=== PATIENT | female | born 1960 | race Caucasian/White ===

== ENCOUNTER 2018-08-05 05:27 | Observation (INO) ==
[2018-08-05] MEDS ORDERED: GI Cocktail 40 ML EACH PO ONE (05:37)
[2018-08-05] MEDS ORDERED: Sucralfate 1 GM TABLET PO STA (05:37)
--- NOTE | 2018-08-05 06:09 | Emergency Department Note ---
Disposition Clinical Impression: Epigastric pain Disposition: Still a Patient Referrals: NONE,PCP [Primary Care Provider] - Forms: ED Satisfaction Letter, Work/School Release Abdominal Pain HPI - General Chief Complaint: ED Abdominal Pain Stated Complaint: abd pain Time Seen by Provider: 08/05/18 05:37 Source: patient Mode of arrival: ambulatory Limitations: no limitations Nursing Notes Reviewed: Yes Vital Signs Reviewed: Yes - History of Present Illness HPI Narrative: 58-year-old female presents to the emergency department via EMS for epigastric abdominal pain. Said it woke her up from sleep at 7 PM and has continued to have pain. She describes the pain as 8 out of 10 coming going epigastrium radiating up into her chest. She says she does have history of GERD was given a stomach pill but only takes it as needed. She also said that she took Pepto- Bismol before coming into that did not help with the pain either. Patient has not noted any fevers or chills. She has no shortness of breath. She is smoker does have history of COPD. She has not noticed any blood in her stools or melanic stools. She feels like she needs to vomit but has not vomited. She has a mildly nauseous at this time but has been getting better. The pain is not is just rating it up into the chest and think seems to make it better or worse. Patient otherwise has no other complaints. Pain Scale: 10 - Related Data Home Medications Medication Instructions Recorded Confirmed Aspirin 81 mg PO DAILY 12/14/15 12/14/15 Guaifenesin [Mucinex] 600 mg PO BID 12/14/15 12/14/15 Metoprolol [Lopressor] 25 mg PO DAILY 12/14/15 12/14/15 Allergies Allergy/AdvReac Type Severity Reaction Status Date / Time No Known Allergies Allergy Verified 12/14/15 07:33 All systems ED: reviewed and negative except as stated. Review of Systems: As Per HPI Abdominal Pain PMH - Past Medical History Medical history: Reports: hypertension Female Surgical History: Reports: Psychiatric history: Reports: no psych history - Social History Smoking status: Current every day smoker Alcohol use: Reports: occasionally Drug use: Reports: none Physical Exam - General Limitations: no limitations General appearance: alert, in no apparent distress - Head Head exam: atraumatic, normocephalic, normal inspection - Eye Eye exam: Present: normal appearance, PERRL, EOMI - ENT ENT exam: normal exam, normal oropharynx, mucous membranes moist - Neck Neck exam: Present: normal inspection, full ROM, trachea midline - Chest Chest inspection: Present: normal inspection, symmetric chest wall rise - Respiratory Respiratory exam: Present: normal lung sounds bilaterally - Cardiovascular Cardiovascular exam: Present: regular rate, normal rhythm, normal heart sounds - Abdominal Exam Abdominal exam: Present: soft, tenderness, normal bowel sounds. Absent: diste ntion, guarding, rebound, rigidity Abdominal tenderness: Present: epigastrium, mild - Extremities Exam Extremities exam: Present: normal inspection, full ROM. Absent: tenderness, pedal edema - Back Exam Back exam: Present: normal inspection, full ROM. Absent: tenderness - Neurological Exam Neurological exam: Present: alert, oriented X3 - Skin Skin exam: Present: warm, dry, intact, normal color Course Course Narrative: 4-year-old female presented emergency department with abdominal pain. We will get basic labs getting CBC, BMP as well as a lactate and lipase. We will give patient Carafate and GI cocktail for pain control. We will hold off on getting advanced imaging at this time until labs return. Disposition is pending results. - Reevaluation(s) Reevaluation #1: Patient reevaluated sliding same epigastric abdominal pain. We will do CT abdomen and pelvis with contrast. We will give patient Pepcid, fentanyl, IV fluids for pain control. Patient is still not nauseous at this time. Time: 06:41 Vital Signs Temperature 97.7 F 08/05/18 05:29 Pulse Rate 74 08/05/18 05:29 Respiratory Rate 20 08/05/18 05:29 Blood Pressure 154/74 08/05/18 05:29 O2 Sat by Pulse Oximetry 96 08/05/18 05:29 Temperature 97.7 F 08/05/18 05:29 Pulse Rate 65 08/05/18 06:49 Respiratory Rate 20 08/05/18 06:49 Blood Pressure 180/85 08/05/18 06:49 O2 Sat by Pulse Oximetry 97 08/05/18 06:49 Oxygen Delivery Oxygen Delivery Room Air Abdominal Pain - MDM Narrative Medical decision making narrative: 4-year-old female presents to the emergency department complaining of epigastric abdominal pain. When first evaluated her is minimal epigastric this seems more like GERD. Did give patient Carafate and GI cocktail she said that did not help at all with her pain. Labs are still pending she did have mild leukocytosis. Due to this we decided to add a CT abdomen and pelvis with contrast for further evaluation of patient's abdominal pain. I said he an IV give her IV fluids, fentanyl and Pepcid. Patient's okay with this plan. Patient's labs and CT imaging are still pending at this time. Patient will be signed out to the day team physicians please refer to Dr. Armas and See's note for further plan and disposition. Patient stable at time of sign out - Medical Records Medical records reviewed: Yes I reviewed the patient's medical records. - Lab Data Lab results reviewed: Yes I reviewed the patient's lab results. Result diagrams: 08/05/18 06:13 Lab Results 08/05/18 08/05/18 08/05/18 Range/Units 06:08 06:13 06:13 WBC 13.1 H (4.3-11.1) K/mcL RBC 5.02 H (3.82-4.97) M/mcL Hgb 16.0 H (11.5-15.4) g/dL Hct 47.2 H (35.3-44.9) % MCV 94.0 (83.0-100.0) fL MCH 31.9 (28.0-33.3) pg MCHC 33.9 (31.6-35.5) g/dL RDW 12.0 (11.5-14.5) % Plt Count 200 (140-400) K/mcL MPV 11.3 (9.4-12.4) fL Immature Gran % 0.4 (0-4) % Seg Neutrophils % 84.1 % Lymphocytes % 8.9 % Monocytes % 5.4 % Eosinophils % 1.0 % Basophils % 0.2 % Neutrophils # 11.0 H (1.6-8.9) K/mcL Lymphocytes # 1.2 (0.6-4.6) K/mcL Monocytes # 0.7 (0.0-1.3) K/mcL Eosinophils # 0.1 (0.0-0.6) K/mcL Basophils # 0.0 (0.0-0.2) K/mcL PT (9.4-12.1) Seconds INR APTT (26.0-36.0) Seconds Lactic Acid (0.5-2.2) mmol/L Troponin I < 0.03 (< 0.04) ng/mL Urine Color Yellow (Yellow) Urine Clarity Clear (Clear) Urine pH 5.5 (5.0-8.0) pH Units Ur Specific [place] 1.019 (1.010-1.025) Urine Protein Negative (Neg-Trace) mg/dL Urine Glucose (UA) Normal (Normal) mg/dL Urine Ketones Negative (Negative) mg/dL Urine Blood Trace H (Negative) Urine Nitrite Negative (Negative) Urine Bilirubin Negative (Negative) Urine Urobilinogen Normal (Normal) mg/dL Ur Leukocyte Esterase Negative (Negative) Urine Microscopic RBC 0-3 (0-3) per hpf Urine Microscopic WBC 3-5 H (0-3) per hpf Ur Squamous Epith Cells Many H (None-Few) per lpf Urine Bacteria Few (None-Few) per hpf Hyaline Casts None Seen (None-Few) per lpf Ur Culture Indicated? NO (NO) 08/05/18 08/05/18 Range/Units 06:13 06:13 WBC (4.3-11.1) K/mcL RBC (3.82-4.97) M/mcL Hgb (11.5-15.4) g/dL Hct (35.3-44.9) % MCV (83.0-100.0) fL MCH (28.0-33.3) pg MCHC (31.6-35.5) g/dL RDW (11.5-14.5) % Plt Count (140-400) K/mcL MPV (9.4-12.4) fL Immature Gran % (0-4) % Seg Neutrophils % % Lymphocytes % % Monocytes % % Eosinophils % % Basophils % % Neutrophils # (1.6-8.9) K/mcL Lymphocytes # (0.6-4.6) K/mcL Monocytes # (0.0-1.3) K/mcL Eosinophils # (0.0-0.6) K/mcL Basophils # (0.0-0.2) K/mcL PT 11.3 (9.4-12.1) Seconds INR 1.0 APTT 30.8 (26.0-36.0) Seconds Lactic Acid 1.3 (0.5-2.2) mmol/L Troponin I (< 0.04) ng/mL Urine Color (Yellow) Urine Clarity (Clear) Urine pH (5.0-8.0) pH Units Ur Specific [place] (1.010-1.025) Urine Protein (Neg-Trace) mg/dL Urine Glucose (UA) (Normal) mg/dL Urine Ketones (Negative) mg/dL Urine Blood (Negative) Urine Nitrite (Negative) Urine Bilirubin (Negative) Urine Urobilinogen (Normal) mg/dL Ur Leukocyte Esterase (Negative) Urine Microscopic RBC (0-3) per hpf Urine Microscopic WBC (0-3) per hpf Ur Squamous Epith Cells (None-Few) per lpf Urine Bacteria (None-Few) per hpf Hyaline Casts (None-Few) per lpf Ur Culture Indicated? (NO) - EKG Data EKG attestation: Yes I reviewed and interpreted this EKG. EKG results narrative: EKG done at 0 553 review myself and attending shows sinus rhythm at a rate of 69, IL 146, QRS 90, QTC 459. No acute ST changes no acute T-wave changes no other signs of ischemia. No signs of hypertrophy, heart, heart block. No WPW/Brugada/HOCM. EKG compared with old one done on 11/22/06 shows no acute changes
[2018-08-05 06:16] LABS: Bilirubin,Urine Negative (Negative); Blood,Urine Trace (Negative); Clarity,Urine Clear (Clear); Color,Urine Yellow (Yellow); Glucose,Urine (UA) Normal (Normal); Ketones,Urine Negative (Negative); Leukocyte Esterase,Urine Negative (Negative); Nitrite,Urine Negative (Negative); PH,Urine 5.5 pH Units (5.0-8.0); Protein,Urine Negative (Neg-Trace); Specific Gravity,Urine 1.019 (1.010-1.025); Urobilinogen,Urine Normal (Normal)
[2018-08-05 06:18] LABS: Bacteria,Urine Few per hpf (None-Few); Hyaline Casts,Urine None Seen per lpf (None-Few); RBC,Urine 0-3 per hpf (0-3); Squamous Epithelial Cell,Urine Many per lpf (None-Few)
[2018-08-05 06:24] LABS: Basophils % 0.2 %; Eosinophils # 0.1 K/mcL (0.0-0.6); Hematocrit 47.2 % (35.3-44.9); Immature Granulocytes % 0.4 % (0-4); Lymphocytes # 1.2 K/mcL (0.6-4.6); Lymphocytes % 8.9 %; Mean Corpuscular HGB Conc 33.9 g/dL (31.6-35.5); Mean Corpuscular Hemoglobin 31.9 pg (28.0-33.3); Mean Platelet Volume 11.3 fL (9.4-12.4); Monocytes # 0.7 K/mcL (0.0-1.3); Monocytes % 5.4 %; Platelet Count 200 K/mcL (140-400); Red Blood Count 5.02 M/mcL (3.82-4.97); Segmented Neutrophils % 84.1 %
[2018-08-05 06:33] LABS: Prothrombin Time 11.3 Seconds (9.4-12.1)
[2018-08-05 06:36] LABS: Activated Partial Thrombo Time 30.8 Seconds (26.0-36.0)
[2018-08-05] MEDS ORDERED: 0.9 % Sodium Chloride 1,000 ML IVC ONE ×2 (06:39→08:48)
[2018-08-05] MEDS ORDERED: *HR* FentaNYL (PF) 100 MCG/2 ML VIAL IVP ONE ×2 (06:39→12:18)
[2018-08-05] MEDS ORDERED: Isovue-370 500 ML BOTTLE IVP ONE (06:39)
[2018-08-05] MEDS ORDERED: Famotidine 20 MG/2 ML VIAL IVP ONE (06:40)
[2018-08-05] MEDS ORDERED: Ondansetron 4 MG/2 ML VIAL IVP ONE (06:44)
[2018-08-05 06:49] LABS: Troponin I < 0.03 ng/mL (< 0.04)
[2018-08-05 06:56] LABS: Alanine Aminotransferase 10 Units/L (7-52); Albumin 4.2 g/dL (3.5-5.7); Albumin/Globulin Ratio 1.6 (1.1-2.2); Alkaline Phosphatase 68 Units/L (34-104); Aspartate Amino Transferase 10 Units/L (13-39); BUN/Creatinine Ratio 24 (6-26); Bilirubin,Total 0.4 mg/dL (0.3-1.0); Blood Urea Nitrogen 16 mg/dL (8-23); Calcium 9.8 mg/dL (8.6-10.3); Carbon Dioxide 25 mEq/L (23-29); Chloride 104 mEq/L (98-107); Globulin 2.6 g/dL (2.4-3.5); Glucose 111 mg/dL (70-105); Lipase 16 Units/L (11-82); Osmolality,Calculated 288 (280-300); Sodium 138 mEq/L (136-145); Total Protein 6.8 g/dL (6.4-8.9); eGFR For Non-African Americans > 60 (> 60)
--- NOTE | 2018-08-05 06:56 | Emergency Department Note ---
Disposition Clinical Impression: Epigastric pain Disposition: Still a Patient Condition: Fair Referrals: NONE,PCP [Primary Care Provider] - Forms: ED Satisfaction Letter, Work/School Release General Adult HPI - General Chief complaint: ED Abdominal Pain Stated complaint: abd pain Time Seen by Provider: 08/05/18 05:37 Source: patient Mode of arrival: ambulatory Limitations: no limitations Nursing Notes Reviewed: Yes Vital Signs Reviewed: Yes - History of Present Illness Pain Scale: 10 - Related Data Home Medications Medication Instructions Recorded Confirmed Aspirin 81 mg PO DAILY 12/14/15 12/14/15 Guaifenesin [Mucinex] 600 mg PO BID 12/14/15 12/14/15 Metoprolol [Lopressor] 25 mg PO DAILY 12/14/15 12/14/15 Allergies Allergy/AdvReac Type Severity Reaction Status Date / Time No Known Allergies Allergy Verified 12/14/15 07:33 Past Medical History - Past Medical History Medical history: Reports: hypertension Surgical history: Reports: Psychiatric history: Reports: no psych history - Social History Smoking Status: Current every day smoker Smokeless Tobacco Status: No Alcohol use: Reports: occasionally Drug use: Reports: none Physical Exam - General Limitations: no limitations General appearance: alert, in no apparent distress Course Vital Signs Temperature 97.7 F 08/05/18 05:29 Pulse Rate 74 08/05/18 05:29 Respiratory Rate 20 08/05/18 05:29 Blood Pressure 154/74 08/05/18 05:29 O2 Sat by Pulse Oximetry 96 08/05/18 05:29 Temperature 97.7 F 08/05/18 05:29 Pulse Rate 65 08/05/18 06:49 Respiratory Rate 20 08/05/18 06:49 Blood Pressure 180/85 08/05/18 06:49 O2 Sat by Pulse Oximetry 97 08/05/18 06:49 Oxygen Delivery Oxygen Delivery Room Air Medical Decision Making - Lab Data Lab results reviewed: Yes I reviewed the patient's lab results. Result diagrams: 08/05/18 06:13 08/05/18 06:13 Lab Results 08/05/18 08/05/18 08/05/18 Range/Units 06:08 06:13 06:13 WBC 13.1 H (4.3-11.1) K/mcL RBC 5.02 H (3.82-4.97) M/mcL Hgb 16.0 H (11.5-15.4) g/dL Hct 47.2 H (35.3-44.9) % MCV 94.0 (83.0-100.0) fL MCH 31.9 (28.0-33.3) pg MCHC 33.9 (31.6-35.5) g/dL RDW 12.0 (11.5-14.5) % Plt Count 200 (140-400) K/mcL MPV 11.3 (9.4-12.4) fL Immature Gran % 0.4 (0-4) % Seg Neutrophils % 84.1 % Lymphocytes % 8.9 % Monocytes % 5.4 % Eosinophils % 1.0 % Basophils % 0.2 % Neutrophils # 11.0 H (1.6-8.9) K/mcL Lymphocytes # 1.2 (0.6-4.6) K/mcL Monocytes # 0.7 (0.0-1.3) K/mcL Eosinophils # 0.1 (0.0-0.6) K/mcL Basophils # 0.0 (0.0-0.2) K/mcL PT (9.4-12.1) Seconds INR APTT (26.0-36.0) Seconds Sodium 138 (136-145) mEq/L Potassium 4.0 (3.5-5.1) mEq/L Chloride 104 (98-107) mEq/L Carbon Dioxide 25 (23-29) mEq/L BUN 16 (8-23) mg/dL Creatinine 0.66 (0.60-1.20) mg/dL Est GFR ( Amer) > 60 (> 60) Est GFR (Non-Af Amer) > 60 (> 60) BUN/Creatinine Ratio 24 (6-26) Glucose 111 H (70-105) mg/dL Calculated Osmolality 288 (280-300) Lactic Acid (0.5-2.2) mmol/L Calcium 9.8 (8.6-10.3) mg/dL Total Bilirubin 0.4 (0.3-1.0) mg/dL AST 10 L (13-39) Units/L ALT 10 (7-52) Units/L Alkaline Phosphatase 68 (34-104) Units/L Troponin I < 0.03 (< 0.04) ng/mL Serum Total Protein 6.8 (6.4-8.9) g/dL Albumin 4.2 (3.5-5.7) g/dL Globulin 2.6 (2.4-3.5) g/dL Albumin/Globulin Ratio 1.6 (1.1-2.2) Lipase 16 (11-82) Units/L Urine Color Yellow (Yellow) Urine Clarity Clear (Clear) Urine pH 5.5 (5.0-8.0) pH Units Ur Specific [place] 1.019 (1.010-1.025) Urine Protein Negative (Neg-Trace) mg/dL Urine Glucose (UA) Normal (Normal) mg/dL Urine Ketones Negative (Negative) mg/dL Urine Blood Trace H (Negative) Urine Nitrite Negative (Negative) Urine Bilirubin Negative (Negative) Urine Urobilinogen Normal (Normal) mg/dL Ur Leukocyte Esterase Negative (Negative) Urine Microscopic RBC 0-3 (0-3) per hpf Urine Microscopic WBC 3-5 H (0-3) per hpf Ur Squamous Epith Cells Many H (None-Few) per lpf Urine Bacteria Few (None-Few) per hpf Hyaline Casts None Seen (None-Few) per lpf Ur Culture Indicated? NO (NO) 08/05/18 08/05/18 Range/Units 06:13 06:13 WBC (4.3-11.1) K/mcL RBC (3.82-4.97) M/mcL Hgb (11.5-15.4) g/dL Hct (35.3-44.9) % MCV (83.0-100.0) fL MCH (28.0-33.3) pg MCHC (31.6-35.5) g/dL RDW (11.5-14.5) % Plt Count (140-400) K/mcL MPV (9.4-12.4) fL Immature Gran % (0-4) % Seg Neutrophils % % Lymphocytes % % Monocytes % % Eosinophils % % Basophils % % Neutrophils # (1.6-8.9) K/mcL Lymphocytes # (0.6-4.6) K/mcL Monocytes # (0.0-1.3) K/mcL Eosinophils # (0.0-0.6) K/mcL Basophils # (0.0-0.2) K/mcL PT 11.3 (9.4-12.1) Seconds INR 1.0 APTT 30.8 (26.0-36.0) Seconds Sodium (136-145) mEq/L Potassium (3.5-5.1) mEq/L Chloride (98-107) mEq/L Carbon Dioxide (23-29) mEq/L BUN (8-23) mg/dL Creatinine (0.60-1.20) mg/dL Est GFR ( Amer) (> 60) Est GFR (Non-Af Amer) (> 60) BUN/Creatinine Ratio (6-26) Glucose (70-105) mg/dL Calculated Osmolality (280-300) Lactic Acid 1.3 (0.5-2.2) mmol/L Calcium (8.6-10.3) mg/dL Total Bilirubin (0.3-1.0) mg/dL AST (13-39) Units/L ALT (7-52) Units/L Alkaline Phosphatase (34-104) Units/L Troponin I (< 0.04) ng/mL Serum Total Protein (6.4-8.9) g/dL Albumin (3.5-5.7) g/dL Globulin (2.4-3.5) g/dL Albumin/Globulin Ratio (1.1-2.2) Lipase (11-82) Units/L Urine Color (Yellow) Urine Clarity (Clear) Urine pH (5.0-8.0) pH Units Ur Specific [place] (1.010-1.025) Urine Protein (Neg-Trace) mg/dL Urine Glucose (UA) (Normal) mg/dL Urine Ketones (Negative) mg/dL Urine Blood (Negative) Urine Nitrite (Negative) Urine Bilirubin (Negative) Urine Urobilinogen (Normal) mg/dL Ur Leukocyte Esterase (Negative) Urine Microscopic RBC (0-3) per hpf Urine Microscopic WBC (0-3) per hpf Ur Squamous Epith Cells (None-Few) per lpf Urine Bacteria (None-Few) per hpf Hyaline Casts (None-Few) per lpf Ur Culture Indicated? (NO) - EKG Data EKG #1 EKG attestation: Yes I reviewed and interpreted this EKG. EKG results narrative: EKG shows normal sinus rhythm with ventricular rate of 69. No ST segment elevation or depression. No arrhythmia or ectopy. Normal EKG. Attestation Statement - Attestation Attestation: I, Ryder Hope MD, personally evaluated this patient and discussed their management with the resident physician. I reviewed the resident's note and agree with the documented findings, medical decision making, and plan of care. 58-year-old female presents to the emergency department by EMS with a complaint of severe sharp midepigastric abdominal pain which awoke her from sleep at 11 PM this evening. The pain has persisted all night. She complains of nausea but there has been no vomiting. No diarrhea. No melena or hematemesis. Patient does state that she has intermittent bright red streaks of blood in her bowel movement but this is chronic and unchanged from usual. She has had similar episodes of pain in the past they usually only last a few minutes and go away. No fever. No dysuria or gross hematuria. No flank pain. No history of pancreatitis. On examination patient is a well-developed well-nourished female in no acute distress. She is alert and oriented 3. There is no cyanosis or diaphoresis. Breath sounds are clear and equal bilaterally. Heart regular rate and rhythm. Abdomen is soft with normal bowel sounds. There is moderate midepigastric tenderness with mild guarding. No rebound tenderness. Labs reviewed. CT the abdomen and pelvis pending. At morning shift change patient is signed out to the oncoming dayshift physician, Dr. Alonso.
[2018-08-05] MEDS ORDERED: Dicyclomine 20 MG/2 ML AMPUL IM STA (07:18)
--- NOTE | 2018-08-05 07:21 | Emergency Department Note ---
Disposition Clinical Impression: Epigastric pain Disposition: Still a Patient Condition: Fair Referrals: NONE,PCP [Primary Care Provider] - Forms: ED Satisfaction Letter, Work/School Release General Adult HPI - General Chief complaint: ED Abdominal Pain Stated complaint: abd pain Time Seen by Provider: 08/05/18 05:37 Source: patient Mode of arrival: ambulatory Limitations: no limitations - History of Present Illness Pain Scale: 10 - Related Data Home Medications Medication Instructions Recorded Confirmed Aspirin 81 mg PO DAILY 12/14/15 12/14/15 Guaifenesin [Mucinex] 600 mg PO BID 12/14/15 12/14/15 Metoprolol [Lopressor] 25 mg PO DAILY 12/14/15 12/14/15 Allergies Allergy/AdvReac Type Severity Reaction Status Date / Time No Known Allergies Allergy Verified 12/14/15 07:33 Past Medical History - Past Medical History Medical history: Reports: hypertension Surgical history: Reports: Psychiatric history: Reports: no psych history - Social History Smoking Status: Current every day smoker Smokeless Tobacco Status: No Alcohol use: Reports: occasionally Drug use: Reports: none Physical Exam - General Limitations: no limitations General appearance: alert, in no apparent distress Course Vital Signs Temperature 97.7 F 08/05/18 05:29 Pulse Rate 74 08/05/18 05:29 Respiratory Rate 20 08/05/18 05:29 Blood Pressure 154/74 08/05/18 05:29 O2 Sat by Pulse Oximetry 96 08/05/18 05:29 Temperature 97.7 F 08/05/18 05:29 Pulse Rate 66 08/05/18 09:08 Respiratory Rate 18 08/05/18 09:08 Blood Pressure 176/75 08/05/18 09:08 O2 Sat by Pulse Oximetry 100 08/05/18 09:08 Oxygen Delivery Oxygen Delivery Nasal Cannula Medical Decision Making - Lab Data Result diagrams: 08/05/18 06:13 08/05/18 06:13 Lab Results 08/05/18 08/05/18 08/05/18 Range/Units 06:08 06:13 06:13 WBC 13.1 H (4.3-11.1) K/mcL RBC 5.02 H (3.82-4.97) M/mcL Hgb 16.0 H (11.5-15.4) g/dL Hct 47.2 H (35.3-44.9) % MCV 94.0 (83.0-100.0) fL MCH 31.9 (28.0-33.3) pg MCHC 33.9 (31.6-35.5) g/dL RDW 12.0 (11.5-14.5) % Plt Count 200 (140-400) K/mcL MPV 11.3 (9.4-12.4) fL Immature Gran % 0.4 (0-4) % Seg Neutrophils % 84.1 % Lymphocytes % 8.9 % Monocytes % 5.4 % Eosinophils % 1.0 % Basophils % 0.2 % Neutrophils # 11.0 H (1.6-8.9) K/mcL Lymphocytes # 1.2 (0.6-4.6) K/mcL Monocytes # 0.7 (0.0-1.3) K/mcL Eosinophils # 0.1 (0.0-0.6) K/mcL Basophils # 0.0 (0.0-0.2) K/mcL PT (9.4-12.1) Seconds INR APTT (26.0-36.0) Seconds Sodium 138 (136-145) mEq/L Potassium 4.0 (3.5-5.1) mEq/L Chloride 104 (98-107) mEq/L Carbon Dioxide 25 (23-29) mEq/L BUN 16 (8-23) mg/dL Creatinine 0.66 (0.60-1.20) mg/dL Est GFR ( Amer) > 60 (> 60) Est GFR (Non-Af Amer) > 60 (> 60) BUN/Creatinine Ratio 24 (6-26) Glucose 111 H (70-105) mg/dL Calculated Osmolality 288 (280-300) Lactic Acid (0.5-2.2) mmol/L Calcium 9.8 (8.6-10.3) mg/dL Total Bilirubin 0.4 (0.3-1.0) mg/dL AST 10 L (13-39) Units/L ALT 10 (7-52) Units/L Alkaline Phosphatase 68 (34-104) Units/L Troponin I < 0.03 (< 0.04) ng/mL Serum Total Protein 6.8 (6.4-8.9) g/dL Albumin 4.2 (3.5-5.7) g/dL Globulin 2.6 (2.4-3.5) g/dL Albumin/Globulin Ratio 1.6 (1.1-2.2) Lipase 16 (11-82) Units/L Urine Color Yellow (Yellow) Urine Clarity Clear (Clear) Urine pH 5.5 (5.0-8.0) pH Units Ur Specific [place] 1.019 (1.010-1.025) Urine Protein Negative (Neg-Trace) mg/dL Urine Glucose (UA) Normal (Normal) mg/dL Urine Ketones Negative (Negative) mg/dL Urine Blood Trace H (Negative) Urine Nitrite Negative (Negative) Urine Bilirubin Negative (Negative) Urine Urobilinogen Normal (Normal) mg/dL Ur Leukocyte Esterase Negative (Negative) Urine Microscopic RBC 0-3 (0-3) per hpf Urine Microscopic WBC 3-5 H (0-3) per hpf Ur Squamous Epith Cells Many H (None-Few) per lpf Urine Bacteria Few (None-Few) per hpf Hyaline Casts None Seen (None-Few) per lpf Ur Culture Indicated? NO (NO) 08/05/18 08/05/18 08/05/18 Range/Units 06:13 06:13 08:50 WBC (4.3-11.1) K/mcL RBC (3.82-4.97) M/mcL Hgb (11.5-15.4) g/dL Hct (35.3-44.9) % MCV (83.0-100.0) fL MCH (28.0-33.3) pg MCHC (31.6-35.5) g/dL RDW (11.5-14.5) % Plt Count (140-400) K/mcL MPV (9.4-12.4) fL Immature Gran % (0-4) % Seg Neutrophils % % Lymphocytes % % Monocytes % % Eosinophils % % Basophils % % Neutrophils # (1.6-8.9) K/mcL Lymphocytes # (0.6-4.6) K/mcL Monocytes # (0.0-1.3) K/mcL Eosinophils # (0.0-0.6) K/mcL Basophils # (0.0-0.2) K/mcL PT 11.3 (9.4-12.1) Seconds INR 1.0 APTT 30.8 (26.0-36.0) Seconds Sodium (136-145) mEq/L Potassium (3.5-5.1) mEq/L Chloride (98-107) mEq/L Carbon Dioxide (23-29) mEq/L BUN (8-23) mg/dL Creatinine (0.60-1.20) mg/dL Est GFR ( Amer) (> 60) Est GFR (Non-Af Amer) (> 60) BUN/Creatinine Ratio (6-26) Glucose (70-105) mg/dL Calculated Osmolality (280-300) Lactic Acid 1.3 0.9 (0.5-2.2) mmol/L Calcium (8.6-10.3) mg/dL Total Bilirubin (0.3-1.0) mg/dL AST (13-39) Units/L ALT (7-52) Units/L Alkaline Phosphatase (34-104) Units/L Troponin I (< 0.04) ng/mL Serum Total Protein (6.4-8.9) g/dL Albumin (3.5-5.7) g/dL Globulin (2.4-3.5) g/dL Albumin/Globulin Ratio (1.1-2.2) Lipase (11-82) Units/L Urine Color (Yellow) Urine Clarity (Clear) Urine pH (5.0-8.0) pH Units Ur Specific [place] (1.010-1.025) Urine Protein (Neg-Trace) mg/dL Urine Glucose (UA) (Normal) mg/dL Urine Ketones (Negative) mg/dL Urine Blood (Negative) Urine Nitrite (Negative) Urine Bilirubin (Negative) Urine Urobilinogen (Normal) mg/dL Ur Leukocyte Esterase (Negative) Urine Microscopic RBC (0-3) per hpf Urine Microscopic WBC (0-3) per hpf Ur Squamous Epith Cells (None-Few) per lpf Urine Bacteria (None-Few) per hpf Hyaline Casts (None-Few) per lpf Ur Culture Indicated? (NO) Attestation Statement - Attestation Attestation: I examined this patient and my medical decision-making was reviewed with the Resident Physician. I agree with the documented findings, disposition and treatment plan as described except to the extent set forth below. Patient signed out pending CT scan. Patient with epigastric abdominal pain. On our examination her pain is localized to the right upper quadrant. Plan. Bedside ultrasound performed by with my supervision. Patient with large gallstones and a thickened gallbladder wall. We will obtain formal study. Likely surgery consult. CT and ultrasound is concerning for cholecystitis. Calling for admission. Normal sinus at 69. Normal ST segments. Normal T waves. No signs of ischemia. Unchanged from prior EKG in 2006. Abdomen/Pelvis CT 08/05/18 06:39 IMPRESSION: There are several stones seen within the gallbladder with minimal pericholecystic fluid and intrahepatic biliary ductal dilatation seen to be present these findings may relate to possible cholecystitis recommend ultrasound of the right upper quadrant to better evaluate. The remainder of the abdomen and pelvis is normal. D/ / Dillon Harvey MD / Dillon Harvey MD Interpreting Provider: Dillon Harvey MD Gallbladder Ultrasound 08/05/18 08:09 IMPRESSION: 1. Spectrum of ultrasound findings suggest acute cholecystitis. Correlate with clinical symptoms. 2. Tenderness is noted over the region of the pancreas with no true sonographic Jimenez sign. D/ / Antwan Mena MD / Antwan Mena MD Interpreting Provider: Antwan Mena MD
--- NOTE | 2018-08-05 07:22 | Emergency Department Note ---
Disposition Clinical Impression: Cholecystitis with cholelithiasis Qualifiers: Cholelithiasis location: gallbladder Cholecystitis acuity: acute Biliary obstruction: without biliary obstruction Qualified Code(s): K80.00 - Calculus of gallbladder with acute cholecystitis without obstruction Disposition: Still a Patient Condition: Fair Abdominal Pain HPI - General Chief Complaint: ED Abdominal Pain Stated Complaint: abd pain Time Seen by Provider: 08/05/18 05:37 Source: patient Mode of arrival: ambulatory Nursing Notes Reviewed: Yes Vital Signs Reviewed: Yes - History of Present Illness Pain Scale: 10 - Related Data Home Medications Medication Instructions Recorded Confirmed Aspirin 81 mg PO DAILY 12/14/15 08/05/18 Metoprolol [Lopressor] 25 mg PO DAILY 08/05/18 08/05/18 Allergies Allergy/AdvReac Type Severity Reaction Status Date / Time No Known Allergies Allergy Verified 12/14/15 07:33 Abdominal Pain PMH - Past Medical History Medical history: Reports: hypertension Female Surgical History: Reports: Psychiatric history: Reports: no psych history - Social History Smoking status: Current every day smoker Alcohol use: Reports: occasionally Drug use: Reports: none Physical Exam - General Limitations: no limitations General appearance: alert, in no apparent distress - Head Head exam: normocephalic - Eye Eye exam: Present: EOMI - ENT ENT exam: mucous membranes moist - Neck Neck exam: Present: trachea midline - Chest Chest inspection: Present: symmetric chest wall rise - Respiratory Respiratory exam: Present: normal lung sounds bilaterally. Absent: respiratory distress - Cardiovascular Cardiovascular exam: Present: regular rate, normal rhythm, normal heart sounds - Abdominal Exam Abdominal exam: Present: soft, tenderness, Jimenez's sign. Absent: distention, guarding, rebound, rigidity Abdominal tenderness: Present: RUQ, moderate - Extremities Exam Extremities exam: Present: normal capillary refill - Back Exam Back exam: Present: full ROM - Neurological Exam Neurological exam: Present: alert, oriented X3 - Psychiatric Psychiatric exam: Present: normal affect, normal mood - Skin Skin exam: Present: warm, dry, intact, normal color. Absent: rash Course Vital Signs Temperature 97.7 F 08/05/18 05:29 Pulse Rate 74 08/05/18 05:29 Respiratory Rate 20 08/05/18 05:29 Blood Pressure 154/74 08/05/18 05:29 O2 Sat by Pulse Oximetry 96 08/05/18 05:29 Temperature 98.5 F 08/05/18 17:45 Pulse Rate 84 08/05/18 17:45 Respiratory Rate 16 08/05/18 17:45 Blood Pressure 140/75 08/05/18 17:45 O2 Sat by Pulse Oximetry 99 08/05/18 17:45 Oxygen Delivery Oxygen Delivery Nasal Cannula Abdominal Pain - MDM Narrative Medical decision making narrative: Prefer to history of present illness, physical exam, medical decision-making from previous notes as is a sign out to me. 58-year-old female chronic history of right upper quadrant to epigastric abdominal pain, reporting being in severe pain all night since 11 PM. Bedside ultrasound reveals cholelithiasis with large stones. He was also thickened wall. We will obtain formal ultrasound of the gallbladder in conjunction with CT scan of abdomen and pelvis. CT scan of the abdomen and pelvis revealed concern for cholecystitis. Her upper quadrant ultrasound revealed the cervical cystitis as well. I talked to the surgeon wireless sales consultant who agreed to accept the patient for admission with plans for operation. Patient was given Zosyn here in the emergency department. Abdomen/Pelvis CT 08/05/18 06:39 IMPRESSION: There are several stones seen within the gallbladder with minimal pericholecystic fluid and intrahepatic biliary ductal dilatation seen to be present these findings may relate to possible cholecystitis recommend ultrasound of the right upper quadrant to better evaluate. The remainder of the abdomen and pelvis is normal. D/ / Dillon Harvey MD / Dillon Harvey MD Interpreting Provider: Dillon Harvey MD Gallbladder Ultrasound 08/05/18 08:09 IMPRESSION: 1. Spectrum of ultrasound findings suggest acute cholecystitis. Correlate with clinical symptoms. 2. Tenderness is noted over the region of the pancreas with no true sonographic Jimenez sign. D/ / Antwan Mena MD / Antwan Mena MD Interpreting Provider: Antwan Mena MD - Lab Data Result diagrams: 08/05/18 06:13 08/05/18 06:13 Lab Results 04/08/05/18 08/05/18 Range/Units 06:08 06:13 06:13 WBC 13.1 H (4.3-11.1) K/mcL RBC 5.02 H (3.82-4.97) M/mcL Hgb 16.0 H (11.5-15.4) g/dL Hct 47.2 H (35.3-44.9) % MCV 94.0 (83.0-100.0) fL MCH 31.9 (28.0-33.3) pg MCHC 33.9 (31.6-35.5) g/dL RDW 12.0 (11.5-14.5) % Plt Count 200 (140-400) K/mcL MPV 11.3 (9.4-12.4) fL Immature Gran % 0.4 (0-4) % Seg Neutrophils % 84.1 % Lymphocytes % 8.9 % Monocytes % 5.4 % Eosinophils % 1.0 % Basophils % 0.2 % Neutrophils # 11.0 H (1.6-8.9) K/mcL Lymphocytes # 1.2 (0.6-4.6) K/mcL Monocytes # 0.7 (0.0-1.3) K/mcL Eosinophils # 0.1 (0.0-0.6) K/mcL Basophils # 0.0 (0.0-0.2) K/mcL PT (9.4-12.1) Seconds INR APTT (26.0-36.0) Seconds Sodium 138 (136-145) mEq/L Potassium 4.0 (3.5-5.1) mEq/L Chloride 104 (98-107) mEq/L Carbon Dioxide 25 (23-29) mEq/L BUN 16 (8-23) mg/dL Creatinine 0.66 (0.60-1.20) mg/dL Est GFR ( Amer) > 60 (> 60) Est GFR (Non-Af Amer) > 60 (> 60) BUN/Creatinine Ratio 24 (6-26) Glucose 111 H (70-105) mg/dL Calculated Osmolality 288 (280-300) Lactic Acid (0.5-2.2) mmol/L Calcium 9.8 (8.6-10.3) mg/dL Total Bilirubin 0.4 (0.3-1.0) mg/dL AST 10 L (13-39) Units/L ALT 10 (7-52) Units/L Alkaline Phosphatase 68 (34-104) Units/L Troponin I < 0.03 (< 0.04) ng/mL Serum Total Protein 6.8 (6.4-8.9) g/dL Albumin 4.2 (3.5-5.7) g/dL Globulin 2.6 (2.4-3.5) g/dL Albumin/Globulin Ratio 1.6 (1.1-2.2) Lipase 16 (11-82) Units/L Urine Color Yellow (Yellow) Urine Clarity Clear (Clear) Urine pH 5.5 (5.0-8.0) pH Units Ur Specific [place] 1.019 (1.010-1.025) Urine Protein Negative (Neg-Trace) mg/dL Urine Glucose (UA) Normal (Normal) mg/dL Urine Ketones Negative (Negative) mg/dL Urine Blood Trace H (Negative) Urine Nitrite Negative (Negative) Urine Bilirubin Negative (Negative) Urine Urobilinogen Normal (Normal) mg/dL Ur Leukocyte Esterase Negative (Negative) Urine Microscopic RBC 0-3 (0-3) per hpf Urine Microscopic WBC 3-5 H (0-3) per hpf Ur Squamous Epith Cells Many H (None-Few) per lpf Urine Bacteria Few (None-Few) per hpf Hyaline Casts None Seen (None-Few) per lpf Ur Culture Indicated? NO (NO) 08/05/18 08/05/18 08/05/18 Range/Units 06:13 06:13 08:50 WBC (4.3-11.1) K/mcL RBC (3.82-4.97) M/mcL Hgb (11.5-15.4) g/dL Hct (35.3-44.9) % MCV (83.0-100.0) fL MCH (28.0-33.3) pg MCHC (31.6-35.5) g/dL RDW (11.5-14.5) % Plt Count (140-400) K/mcL MPV (9.4-12.4) fL Immature Gran % (0-4) % Seg Neutrophils % % Lymphocytes % % Monocytes % % Eosinophils % % Basophils % % Neutrophils # (1.6-8.9) K/mcL Lymphocytes # (0.6-4.6) K/mcL Monocytes # (0.0-1.3) K/mcL Eosinophils # (0.0-0.6) K/mcL Basophils # (0.0-0.2) K/mcL PT 11.3 (9.4-12.1) Seconds INR 1.0 APTT 30.8 (26.0-36.0) Seconds Sodium (136-145) mEq/L Potassium (3.5-5.1) mEq/L Chloride (98-107) mEq/L Carbon Dioxide (23-29) mEq/L BUN (8-23) mg/dL Creatinine (0.60-1.20) mg/dL Est GFR ( Amer) (> 60) Est GFR (Non-Af Amer) (> 60) BUN/Creatinine Ratio (6-26) Glucose (70-105) mg/dL Calculated Osmolality (280-300) Lactic Acid 1.3 0.9 (0.5-2.2) mmol/L Calcium (8.6-10.3) mg/dL Total Bilirubin (0.3-1.0) mg/dL AST (13-39) Units/L ALT (7-52) Units/L Alkaline Phosphatase (34-104) Units/L Troponin I (< 0.04) ng/mL Serum Total Protein (6.4-8.9) g/dL Albumin (3.5-5.7) g/dL Globulin (2.4-3.5) g/dL Albumin/Globulin Ratio (1.1-2.2) Lipase (11-82) Units/L Urine Color (Yellow) Urine Clarity (Clear) Urine pH (5.0-8.0) pH Units Ur Specific [place] (1.010-1.025) Urine Protein (Neg-Trace) mg/dL Urine Glucose (UA) (Normal) mg/dL Urine Ketones (Negative) mg/dL Urine Blood (Negative) Urine Nitrite (Negative) Urine Bilirubin (Negative) Urine Urobilinogen (Normal) mg/dL Ur Leukocyte Esterase (Negative) Urine Microscopic RBC (0-3) per hpf Urine Microscopic WBC (0-3) per hpf Ur Squamous Epith Cells (None-Few) per lpf Urine Bacteria (None-Few) per hpf Hyaline Casts (None-Few) per lpf Ur Culture Indicated? (NO)
[2018-08-05] MEDS ORDERED: Piperacillin/Tazobactam 3.375 GM in Water for inj. (sterile) 20 ML 20 ML IVP ONE (08:48)
[2018-08-05] MEDS ORDERED: Piperacillin/Tazobactam 3.375 GM in 0.9 % Sodium Chloride Mini Bag 100 ML IVPB ONE (09:00)
--- NOTE | 2018-08-05 11:33 | Acute Care Surgery H&P ---
Date of Encounter: 08/05/18 Time of Encounter: 11:25 Assessment and Plan (1) Acute cholecystitis due to biliary calculus Current Visit: Yes Status: Acute The assessment and plan as outlined above was discussed with the patient and/or family members who expressed understanding and agreement. All questions were answered. Pt diagnosis of acute calculus cholecystitis with cholelithiasis is discussed. Laparoscopic Cholecystectomy is recommended. Procedure for the surgery, risks and benefits are discussed in detail. Possible known complications for Laparoscopic Cholecystectomy are bleeding, infection, bile duct injury, bile leak, small intestine or stomach injury, stroke, DVT/PE, CA or . Pt understands these risks, which in this case are low. Pt wishes to proceed with surgery as soon as possible. Informed consent is obtained. Pt condition is stable. Surgery is scheduled. (2) HTN (hypertension) Current Visit: Yes Status: Acute Will manage with home meds after surgery. Qualifiers: Qualified Code(s): I10 - Essential (primary) hypertension History of Present Illness Chief complaint: abdominal pain, nausea, vomiting HPI: This 58 y/o pt presents to [facility] ED complaining of RUQ abdominal pain. Pt reports pain is severe and unrelenting. Pt reports the pain is progressively worsening. Pt reports pain radiates to back and up to right shoulder. She reports associated nausea and vomiting. Pt denies CP or SOB. Denies fever. Past Med Surg Social Fam HX - Past Medical History Medical history: hypertension Psychiatric history: no psych history - Past Surgical History Surgical History: - Social History Smoking Status: Current every day smoker Smokeless Tobacco Status: No Alcohol use: occasionally Drug use: none Medications and Allergies Aspirin 81 mg PO DAILY 12/14/15 [History] Guaifenesin [Mucinex] 600 mg PO BID 12/14/15 [History] Metoprolol [Lopressor] 25 mg PO DAILY 12/14/15 [History] Allergy/AdvReac Type Severity Reaction Status Date / Time No Known Allergies Allergy Verified 12/14/15 07:33 Review of Systems All systems PM: The remainder of the systems were reviewed and are negative - Constitutional as per HPI, anorexia, fatigue, no chills, no fever(s), no malaise, no night sweats, no weakness - EENT Nose, mouth and throat: dry mouth, no nasal congestion, no nasal discharge, no sinus pain, no sinus pressure, no sore throat - Cardiovascular no chest pain, no diaphoresis, no dyspnea, no edema - Respiratory no cough, no dyspnea, no wheezing - Gastrointestinal abdominal pain, belching, bloating, nausea, vomiting, no coffee ground emesis, no constipation, no diarrhea, no hematemesis, no hematochezia, no melena - Genitourinary Genitourinary: no difficulty urinating, no flank pain, no urinary frequency - Musculoskeletal back pain, no joint swelling, no limited range of motion, no neck pain - Integumentary dry skin, no pruritus, no rash, no wounds, no jaundice - Neurological no dizziness, no focal weakness, no weakness - Psychiatric no anxiety, no depression - Hematologic/Lymphatic no easy bleeding, no easy bruising General Surgery Exam Initial Vital Signs Temp Pulse Resp BP Pulse Ox 97.7 F 74 20 154/74 96 08/05/18 05:29 08/05/18 05:29 08/05/18 05:29 08/05/18 05:29 08/05/18 05:29 - General physical appearance well developed, well nourished, no distress, moderate pain - Eyes PERRL, normal ocular movement. negative: icteric - ENT no congestion, dry mucosa. negative: nasal discharge - Neck no masses, no lymphadectomy, no venous distension - Respiratory normal respiratory effort, clear to auscultation - Cardiovascular Cardiovascular exam: Present: RRR. Absent: murmurs - Abdomen Abdomen general surgery: Present: bowel sounds present, soft, tender. Absent: guarding, rebound Abdominal Tenderness: Present: RUQ - Genitourinary Present: normal external genitalia - Integumentary Integumentary general surgery: Present: warm and dry, other (no jaundice) - Neurologic Present: CN 2-12 grossly intact - Musculoskeletal Present: normal posture - Psychiatric Psychiatric general surgery: Present: A&Ox3, appropriate Results - Labs 08/05/18 06:13 08/05/18 06:13 Abnormal lab results WBC 13.1 K/mcL (4.3-11.1) H 08/05/18 06:13 RBC 5.02 M/mcL (3.82-4.97) H 08/05/18 06:13 Hgb 16.0 g/dL (11.5-15.4) H 08/05/18 06:13 Hct 47.2 % (35.3-44.9) H 08/05/18 06:13 Neutrophils # 11.0 K/mcL (1.6-8.9) H 08/05/18 06:13 Glucose 111 mg/dL (70-105) H 08/05/18 06:13 AST 10 Units/L (13-39) L 08/05/18 06:13 Urine Blood Trace (Negative) H 08/05/18 06:08 Urine Microscopic WBC 3-5 per hpf (0-3) H 08/05/18 06:08 Ur Squamous Epith Cells Many per lpf (None-Few) H 08/05/18 06:08 Diabetes panel 08/05/18 Range/Units 06:13 Sodium 138 (136-145) mEq/L Potassium 4.0 (3.5-5.1) mEq/L Chloride 104 (98-107) mEq/L Carbon Dioxide 25 (23-29) mEq/L BUN 16 (8-23) mg/dL Creatinine 0.66 (0.60-1.20) mg/dL Glucose 111 H (70-105) mg/dL Calcium 9.8 (8.6-10.3) mg/dL AST 10 L (13-39) Units/L ALT 10 (7-52) Units/L Alkaline Phosphatase 68 (34-104) Units/L Albumin 4.2 (3.5-5.7) g/dL Calcium panel 08/05/18 Range/Units 06:13 Calcium 9.8 (8.6-10.3) mg/dL Albumin 4.2 (3.5-5.7) g/dL Pituitary panel 08/05/18 Range/Units 06:13 Sodium 138 (136-145) mEq/L Potassium 4.0 (3.5-5.1) mEq/L Chloride 104 (98-107) mEq/L Carbon Dioxide 25 (23-29) mEq/L BUN 16 (8-23) mg/dL Creatinine 0.66 (0.60-1.20) mg/dL Glucose 111 H (70-105) mg/dL Calcium 9.8 (8.6-10.3) mg/dL Adrenal panel 08/05/18 Range/Units 06:13 Sodium 138 (136-145) mEq/L Potassium 4.0 (3.5-5.1) mEq/L Chloride 104 (98-107) mEq/L Carbon Dioxide 25 (23-29) mEq/L BUN 16 (8-23) mg/dL Creatinine 0.66 (0.60-1.20) mg/dL Glucose 111 H (70-105) mg/dL Calcium 9.8 (8.6-10.3) mg/dL Total Bilirubin 0.4 (0.3-1.0) mg/dL AST 10 L (13-39) Units/L ALT 10 (7-52) Units/L Alkaline Phosphatase 68 (34-104) Units/L Albumin 4.2 (3.5-5.7) g/dL All other labs normal. - Imaging US - abdomen: image reviewed (The gallbladder is distended. A 2.6 cm stone is observed in the lumen, and there is also a sludge ball within the lumen. Diffuse gallbladder mucosal thickening measuring up to 7 mm.) - VTE Reasons for not Prescribing Prophylaxis: Treatment not Indicated - Low risk for VTE
[2018-08-05] MEDS ORDERED: *HR* Morphine 2 MG/ML SYRINGE IVP ONE (13:59)
[2018-08-05] MEDS ORDERED: Lidocaine -MPF 2% 2 ML VIAL ONE (15:37)
[2018-08-05] MEDS ORDERED: *HR* Succinylcholine 200 MG/10 ML VIAL IVP ONE (15:37)
[2018-08-05] MEDS ORDERED: Dexamethasone 4 MG/ML VIAL ONE (15:37)
[2018-08-05] MEDS ORDERED: *HR* Midazolam HCl 2 MG/2 ML VIAL ONE (15:37)
[2018-08-05] MEDS ORDERED: Ondansetron 4 MG/2 ML VIAL ONE (15:37)
[2018-08-05] MEDS ORDERED: *HR* FentaNYL (PF) 100 MCG/2 ML VIAL ONE (15:37)
[2018-08-05] MEDS ORDERED: *HR* Propofol 200 MG/20 ML VIAL IVP ONE (15:37)
[2018-08-05] MEDS ORDERED: Neostigmine Methylsulfate 3 MG/3 ML SYRINGE ONE (15:38)
[2018-08-05] MEDS ORDERED: Lidocaine -MPF 4% 5 ML AMPUL ONE ×2 (15:44)
--- NOTE | 2018-08-05 15:45 | Anesthesia Evaluation PreOp ---
Date of Encounter: 08/05/18 Time of Encounter: 15:43 - Past History Planned Operation: Lap cholecystectomy Cardiac History: HTN Pulmonary History: Smoker SPOON MAKER History: Denies Any Significant HX Other Medical History: Denies Any Significant HX Anesthesia History: No Prior Anesthetic Complications, Past Anesthesia (C-S under general, colonoscopy) Alcohol Use: occasionally Drug use: none Medications and Allergies Aspirin 81 mg PO DAILY 12/14/15 [History] Metoprolol [Lopressor] 25 mg PO DAILY 08/05/18 [History] Allergy/AdvReac Type Severity Reaction Status Date / Time No Known Allergies Allergy Verified 12/14/15 07:33 - Meds/Allergy Pre-op Review Medications Reviewed: Yes Allergies Reviewed: Yes Beta Blockers on Current Med List: Yes If Beta Blockers taken, Date/Time (Last Dose taken): not today; not indicated without ASC Anesthesia Results - Labs 08/05/18 06:13 08/05/18 06:13 - Imaging Additional studies: 2016 stress test: Impression: Pharmacologic stress ECG is non diagnostic for ischemia due to failure to reach target heart rate. Gated EF > 70%. Small size, mild intensity, fixed apical inferior defect suggestive of artifact. Perfusion imaging was negative for ischemia or infarct. Anesthesia Exam Last Vital Signs Temp 98.4 F 08/05/18 14:48 Pulse 78 08/05/18 15:35 Resp 17 08/05/18 15:35 BP 155/67 08/05/18 15:35 Pulse Ox 96 08/05/18 15:35 Weight: 68 kg NPO (# of Hours): > 8 hrs - HEENT Pupil (Motor): Pupils equal, EOMI Mallampati: III Teeth: Missing, Poor dentition Oral Opening: Greater than 3 - SPOON MAKER LOC: Oriented - Cardiac Rhythm: Regular Murmur: None - Pulmonary Breath Sounds: bilateral Clear Respiratory Effort: Symmetrical Anesthesia Assess/Plan ASA Score: 2 Level of consciousness: Cooperative Anesthetic Plan: General Monitoring Plan: Standard Monitors Recovery Plan: PACU
[2018-08-05] MEDS ORDERED: *HR* Promethazine 25 MG/ML VIAL IVP PRN (15:46)
[2018-08-05] MEDS ORDERED: *HR* OxyCODONE Immed Rel 5 MG TABLET PO PRN (15:46)
[2018-08-05] MEDS ORDERED: Isovue-300 50 ML VIAL ONE (15:47)
[2018-08-05] MEDS ORDERED: Bupivacaine/EPI 1:200k 0.5%PF 30 ML VIAL ONE (15:47)
[2018-08-05] MEDS ORDERED: Acetaminophen IV 1,000 MG/100 ML INFUS..BTL ONE (15:58)
[2018-08-05] MEDS ORDERED: EPHEDrine 50 MG/ML VIAL ONE (16:37)
--- NOTE | 2018-08-05 18:10 | Anesthesia Evaluation Post Op ---
Date of Encounter: 08/05/18 Time of Encounter: 18:09 - Vital Signs Vital Signs: Vital Signs/O2 Sat, Most Current Temp Pulse Resp BP Pulse Ox 98.5 F 97 16 161/84 95 08/05/18 18:05 08/05/18 18:05 08/05/18 18:05 08/05/18 18:05 08/05/18 18:05 - Lungs Lungs: Clear Ascult./Percussion - Airway Airway: Non-obstructed - Cardiovascular Regular Rate - Mental Status Mental Status: Alert & Oriented, Answers Appropriately - Pain Pain Scale: 0 Pain Scale used: Numeric (1 - 10) - Nausea Vomiting Nausea Vomiting: Not Present - Hydration Hydration: Ice chips, Has not voided - Discharge PostOp Status: Transfer Patient to floor
--- NOTE | 2018-08-05 18:13 | Operative Note ---
Date of procedure: 08/05/18 Pre-op diagnosis: acute cholecystitis with cholelithiasis Post-op diagnosis: same Procedure: Laparoscopic Cholecystectomy Anesthesia: GETA Surgeon: Zohreh Montalvo Was there an electrician's assistant present: No Estimated blood loss (cc): 25 Specimen: gallbladder Condition: stable Disposition: PACU Procedure in Detail: This 58 year-old was taken to the operating room and placed in the supine position. The anterior abdominal wall is prepped and draped in the usual sterile fashion. A 1-2 cm curvilinear incision is made in the infraumbilical area and subcutaneous tissue was dissected down to anterior rectus fascia. Fascia is grasped with a Frank clamp, stay sutures were placed in the fascia is divided. Posterior rectus fascia and peritoneum were elevated and divided in the same manner. Under direct visualization after the injection of 0.5% Marcaine the x3 5 mm ports are inserted in the right subcostal space under direct visualization. The patient is placed in reverse Trendelenburg position and rotated to the left. The gallbladder is grasped and retracted in cephalad direction. It is also grasped and retracted in the lateral direction. The cystic duct was carefully identified circumferentially dissected doubly clipped and divided between clips. The cystic artery is carefully identified and circumferentially dissected and divided between clips. The gallbladder is dissected off the liver bed using electrocautery. Hemostasis was perfected using electrocautery. The gallbladder is removed from the intra-abdominal cavity using an Endo Catch bag. Copious irrigation is carried out in the intra-abdominal cavity, Paul's pouch and the gallbladder fossa. The pneumoperitoneum was allowed to escape under direct visualization. The ports were removed also under direct visualization. The fascia at the infraumbilical incision is closed using 0 Vicryl sutures. All skin incisions are closed using 4-0 Monocryl subcuticular stitches. Steri-Strips are placed. Sterile dressing is placed. Patient tolerated procedure well was taken to the PACU in good condition.
[2018-08-05] MEDS: 0.9 % Sodium Chloride 1,000 ML IVC SCH (19:57)
[2018-08-05] MEDS: Piperacillin/Tazobactam 3.375 GM in 0.9 % Sodium Chloride Mini Bag 100 ML IVPB SCH (19:59)
[2018-08-05] MEDS: *HR* OxyCODONE/APAP 5/325 TABLET PO PRN (20:03)
[2018-08-06] MEDS: *HR* OxyCODONE/APAP 5/325 TABLET PO PRN ×4 (00:03→14:56)
[2018-08-06] MEDS: Ondansetron 4 MG/2 ML VIAL IVP SCH ×3 (00:14→12:53)
[2018-08-06] MEDS: Piperacillin/Tazobactam 3.375 GM in 0.9 % Sodium Chloride Mini Bag 100 ML IVPB SCH (04:36)
--- NOTE | 2018-08-06 07:12 | Electrocardiograph Report ---
[facility] Test Date: 2018-08-05 Pat Name: El Barnhart Department: [id number] Room: 3B35 Gender: F Chair Lift Operator: : 1960 Requested By: Sundeep Mcdonald Order Number: [id number] Reading MD: Ernesto Dumont Measurements Intervals [place] Rate: 69 P: 78 [place]: 146 QRS: 63 QRSD: 90 T: 65 QT: 428 QTc: 459 Interpretive Statements Sinus rhythm Probable left atrial enlargement Electronically Signed On 08-06-2018 7:11:17 EDT by Ernesto Dumont
--- NOTE | 2018-08-06 07:49 | Discharge Summary ---
<Liv Butcher - Last Filed: 08/06/18 08:12> - NOTES TO OUTPATIENT PROVIDER Notes to Outpatient Provider: Please follow up with Dr. Funez in 4 weeks Orders not resulted at time of discharge: Pending orders 08/05/18 08:50 Culture,Blood [BC] Stat 08/05/18 17:29 Surgical Pathology [PTH] Routine Date of Encounter: 08/06/18 Time of Encounter: 07:47 - Discharge Diagnosis (1) S/P laparoscopic cholecystectomy Priority: Primary Status: Acute (2) Acute cholecystitis due to biliary calculus Priority: Primary Status: Acute General Surgery Exam Initial Vital Signs Temp Pulse Resp BP Pulse Ox 97.7 F 74 20 154/74 96 08/05/18 05:29 08/05/18 05:29 08/05/18 05:29 08/05/18 05:29 08/05/18 05:29 - General physical appearance well developed, well nourished, no distress - Eyes PERRL, normal ocular movement - Respiratory normal expansion, normal respiratory effort, clear to auscultation - Cardiovascular Cardiovascular exam: Present: RRR, regular rhythm, no murmurs/rubs/gallops - Abdomen Abdomen general surgery: Present: bowel sounds present, soft, tender (Mild diffuse tenderness expected postoperatively) - Incision Incision: Present: clean and dry, intact - Integumentary Integumentary general surgery: Present: warm and dry, no abnormal pigmentation - Psychiatric Psychiatric general surgery: Present: A&Ox3, appropriate, oriented to person, oriented to place, oriented to time, speech is normal, memory intact - Hospital Course Hospital course: Ms. Barnhart is a 58 year old female with past medical history significant for hypertension who initially presented to [facility] ED complaining of right upper quadrant abdominal pain that was worsening. The pain radiated to the back and up to the right shoulder. Associated with nausea and vomiting. On exam, patient reported right upper quadrant tenderness. However bowel was soft without guarding or rebound. CT of the abdomen and pelvis was done and showed several stones in the gallbladder with minimal pericholecystic fluid and intrahepatic biliary ductal dilation. Findings suggestive of cholecystitis. Right upper quadrant ultrasound showed additional findings suggestive of acute cholecystitis. Patient was taken to the OR with Dr. Shaina Montalvo and laparoscopic cholecystectomy was performed. Patient tolerated procedure without any complications. Patient was seen and examined postoperatively. She reports mild diffuse tenderness which is to be expected postoperatively. We will advance diet today. Patient is able to tolerate diet, will discharge home today. - Time Spent with Patient Total time spent providing and/or coordinating discharge services: Less than 30 minutes - Discharge Medications Prescriptions: New Ondansetron ODT [Zofran ODT] 4 mg SL Q6HR PRN 4 Days #16 tab.rapdis PRN Reason: Nausea OxyCODONE/APAP 5/325 [Percocet 5/325 MG] 1 each PO Q6HR PRN 7 Days #28 tablet PRN Reason: Pain Docusate [Colace] 100 mg PO BID 14 Days #28 capsule RX: Ibuprofen 800 mg PO Q8H 14 Days #42 tablet No Action RX: Aspirin 81 mg PO DAILY Metoprolol [Lopressor] 25 mg PO DAILY Home Medications: RX: Aspirin 81 mg PO DAILY 12/14/15 [History] Metoprolol [Lopressor] 25 mg PO DAILY 08/05/18 [History] Docusate [Colace] 100 mg PO BID 14 Days #28 capsule 08/06/18 [Rx] Ondansetron ODT [Zofran ODT] 4 mg SL Q6HR PRN 4 Days #16 tab.rapdis 08/06/18 [Rx] OxyCODONE/APAP 5/325 [Percocet 5/325 MG] 1 each PO Q6HR PRN 7 Days #28 tablet 08/06/18 [Rx] RX: Ibuprofen 800 mg PO Q8H 14 Days #42 tablet 08/06/18 [Rx] Allergies/Adverse Reactions: Allergy/AdvReac Type Severity Reaction Status Date / Time No Known Allergies Allergy Verified 12/14/15 07:33 Date of admission: 08/05/18 13:52 Primary care physician: PCP NONE Discharging clinician: Liv Butcher Anticipated date of discharge: 08/06/18 Labs on day of discharge: Labs from last 24 hours 08/05/18 08:50 Lactic Acid 0.9 Preliminary micro results at discharge 08/05/18 08:50 Blood Culture - Preliminary Peripheral Venipuncture Culture is incubating and being continuously monitored for growth. Final report to follow. 08/05/18 08:50 Blood Culture - Preliminary Peripheral Venipuncture Culture is incubating and being continuously monitored for growth. Final report to follow. - Impressions ITS Impressions Abdomen/Pelvis CT 08/05/18 06:39 IMPRESSION: There are several stones seen within the gallbladder with minimal pericholecystic fluid and intrahepatic biliary ductal dilatation seen to be present these findings may relate to possible cholecystitis recommend ultrasound of the right upper quadrant to better evaluate. The remainder of the abdomen and pelvis is normal. D/ / Dillon Harvey MD / Dillon Harvey MD Interpreting Provider: Dillon Harvey MD Gallbladder Ultrasound 08/05/18 08:09 IMPRESSION: 1. Spectrum of ultrasound findings suggest acute cholecystitis. Correlate with clinical symptoms. 2. Tenderness is noted over the region of the pancreas with no true sonographic Jimenez sign. D/ / Antwan Mena MD / Antwan Mena MD Interpreting Provider: Antwan Mena MD - Patient Status Disposition: Home, Self-Care Condition: Fair Functional capacity at discharge: independent ambulation Overall status at discharge: patient is progressing back to baseline - Discharge Instructions Instructions: Laparoscopic Cholecystectomy (DC) Follow Up With: Zohreh Zapata [Partnered Physician] - 08/27/18 8:20 am Additional Instructions: General Surgical Discharge Instructions 1. No pushing, pulling, or lifting greater than 15 lbs for 2-4 weeks (depending upon procedure). 2. You may shower beginning today, but no tub baths, soaking, or swimming for 2 weeks. 3. You may resume driving when you are off narcotics and are safe to react in a car. 4. Take ibuprofen every 8 hours for discomfort. If this does not relieve d iscomfort, you may take the as needed Percocet. Take narcotics as directed. Do not take more narcotics then directed and do not share your narcotics with any other person. Do not drink alcohol while on narcotics. 5. Take stool softeners (Colace) or a water based laxative (Miralax) while taking narcotics. You may hold for loose stools. 6. Report any fevers greater than 100.5F, increase abdominal discomfort, drainage that looks like pus, increased redness or pain at the surgical site, or any vomiting. 7. Report any pain in the calves, shortness of breath, or rapid heartbeat. 8. Follow-up in the office as directed. 9. If you were prescribed antibiotics, do not stop them without talking to your provider. - Diet and Activity Activity: increase activity as tolerated, resume usual activities as tolerated Diet: advance to your usual diet <Alfred Bennett - Last Filed: 08/06/18 12:17> Orders not resulted at time of discharge: Pending orders 08/05/18 08:50 Culture,Blood [BC] Stat 08/05/18 17:29 Surgical Pathology [PTH] Routine Date of Encounter: 08/06/18 General Surgery Exam Initial Vital Signs Temp Pulse Resp BP Pulse Ox 97.7 F 74 20 154/74 96 08/05/18 05:29 08/05/18 05:29 08/05/18 05:29 08/05/18 05:29 08/05/18 05:29 - Hospital Course Hospital course: Ms. Barnhart is a 58 year old female - Time Spent with Patient Total time spent providing and/or coordinating discharge services: Date of admission: 08/05/18 13:52 Primary care physician: PCP NONE Labs on day of discharge: Preliminary micro results at discharge 08/05/18 08:50 Blood Culture - Preliminary Peripheral Venipuncture Culture is incubating and being continuously monitored for growth. Final report to follow. 08/05/18 08:50 Blood Culture - Preliminary Peripheral Venipuncture Culture is incubating and being continuously monitored for growth. Final report to follow. - Impressions ITS Impressions Abdomen/Pelvis CT 08/05/18 06:39 IMPRESSION: There are several stones seen within the gallbladder with minimal pericholecystic fluid and intrahepatic biliary ductal dilatation seen to be present these findings may relate to possible cholecystitis recommend ultrasound of the right upper quadrant to better evaluate. The remainder of the abdomen and pelvis is normal. D/ / Dillon Harvey MD / Dillon Harvey MD Interpreting Provider: Dillon Harvey MD Gallbladder Ultrasound 08/05/18 08:09 IMPRESSION: 1. Spectrum of ultrasound findings suggest acute cholecystitis. Correlate with clinical symptoms. 2. Tenderness is noted over the region of the pancreas with no true sonographic Jimenez sign. D/ / Antwan Mena MD / Antwan Mena MD Interpreting Provider: Antwan Mena MD - Attending Attestation I examined this patient and my medical decision-making was reviewed with the Resident Physician. I agree with the documented findings, disposition and treatment plan as described except to the extent set forth below. The patient is seen and evaluated on morning rounds with the acute care surgery team. She has recovered from her laparoscopic cholecystectomy. She is ready for discharge. Follow-up in 4 weeks. Alfred Bennett MD FACS
[2018-08-06] MEDS: 0.9 % Sodium Chloride 1,000 ML IVC SCH (09:04)
[2018-08-06 11:22] VITALS: BP 130/70
== END 2018-08-06 15:54 | disposition home or self-care (01) ==
LOC: EMEROOARM 05:27 → 3BNU 05:27
PROVIDERS: ADMIT Surgery; ATTEND Surgery